=== PATIENT | male | born 1975 | race Two or more races ===

== ENCOUNTER 2018-02-15 09:43 | Day surgery (SDC) | payer BC ==
--- NOTE | 2018-02-14 14:00 | Pre-op HX & Phy Repo 2 SIG ---
DATE OF OUTPATIENT SURGERY: 02/15/2018. HISTORY OF PRESENT ILLNESS: The patient is a 42-year-old male, in overall good health with an umbilical hernia for the past several years, which has been getting slightly larger and is now associated with discomfort. He has no gastrointestinal or genitourinary symptoms. He is scheduled to undergo umbilical hernia repair. PAST MEDICAL HISTORY: none. MEDICATIONS: None. ALLERGIES: None. OPERATIONS: nasal surgery for trauma x4. PHYSICAL EXAMINATION: GENERAL: The patient is 6 foot 3 inches, 230 pounds. HEENT: Within normal limits. LUNGS: Clear. HEART: Regular rhythm. BREASTS: Without masses. ABDOMEN: Slightly obese and soft. There is a mild diastasis rectus, but no epigastric hernia detected with the patient examined supine and standing with various straining maneuvers. There is a small reducible umbilical hernia. There is no evidence of inguinal hernia. RECTAL: Per primary care physician. EXTREMITIES: Without edema. NEUROLOGIC: Physiologic. IMPRESSION: Symptomatic umbilical hernia. PLAN: Full discussion has been had with the patient regarding the nature of his condition, the nature of the surgery, indications, alternatives, options, and risks including bleeding, infection, recurrence with or without mesh, scarring, umbilical deformity, injury to adjacent structures or organs, etc. All questions have been answered. He understands and agrees to proceed under general anesthesia as an outpatient and will likely not require mesh because of the small nature of the defect. Ze Deal M.D. DR: CB/JOAN JOB#: [id number] CC: MARS
[~2018-02-15] VITALS: Ht 190.5 cm; Wt 106.6 kg
[~2018-02-15 09:43] MED LIST: Bacitracin 50000 Units Vial ONE; Bupivacaine 0.5% Inj 30 ml vial INJ ONE; Lidocaine 1% Plain 30 ml INJ ONE
[2018-02-15] MEDS ORDERED: percocet PO (10:14)
[2018-02-15 10:18] VITALS: BP 136/80
[2018-02-15 10:44] LABS: BASOPHILS % (AUTO) 0.7 % (0.0-2.0); EOSINOPHILS % (AUTO) 11.2 % (0.0-3.0); HEMOGLOBIN 14.2 G/DL (14.2-18.0); LYMPHOCYTES % (AUTO) 28.9 % (20.0-45.0); MEAN CORPUSCULAR VOLUME 88 FL (80-99); NEUTROPHILS % (AUTO) 52.2 % (45.0-75.0); PLATELET COUNT 304 K/UL (150-450); RED CELL DISTRIBUTION WIDTH 11.2 % (11.6-14.8); WHITE BLOOD COUNT 7.3 K/UL (4.8-10.8)
[2018-02-15 11:03] LABS: ANION GAP 9 mmol/L (5-15); BLOOD UREA NITROGEN 14 mg/dL (7-18); CALCIUM 9.2 MG/DL (8.5-10.1); CARBON DIOXIDE 28 MMOL/L (21-32); CHLORIDE 104 MMOL/L (98-107); CREATININE 0.9 MG/DL (0.55-1.30); POTASSIUM 3.8 MMOL/L (3.5-5.1); SODIUM 140 MMOL/L (136-145)
--- NOTE | 2018-02-15 11:37 | Anethesia Preoperative Eval ---
Anesthesia Pre-op PMH/ROS General Date of Evaluation: Feb 15, 2018 Anesthesiologist: Ki ASA Score: ASA 2 Mallampati Score Class I : Soft palate, uvula, fauces, pillars visible Class II: Soft palate, uvula, fauces visible Class III: Soft palate, base of uvula visible Class IV: Only hard plate visible Mallampati Classification: Class II Surgeon: Say Diagnosis: Umbilical hernia Surgical Procedure: Umbilical hernia repair Anesthesia History: none Family History: no anesthesia problems Allergies: Coded Allergies: No Known Allergies (Unverified , 02/15/18) Medications: see eMAR Past Medical History Cardiovascular: Denies: HTN, CAD, [place], valve dz, arrhythmia, other Gastrointestinal/Genitourinary: Denies: GERD, CRI, ESRD, other Neurologic/Psychiatric: Denies: dementia, CVA, depression/anxiety, TIA, other Endocrine: Denies: DM, hypothyroidism, steroids, other HEENT: Denies: cataract (L), cataract (R), glaucoma, [place] (L), [place] (R), other Hematology/Immune: Denies: anemia, DVT, bleeding disorder, other Musculoskeletal/Integumentary: Denies: OA, RA, DJD, DDD, edema, other Other: obesity PSxH Narrative: septoplasty Anesthesia Pre-op Phys. Exam Physician Exam Last Vital Signs Date Time Temp Pulse Resp B/P (MAP) Pulse Ox O2 Delivery O2 Flow Rate FiO2 02/15/18 10:18 98.7 70 18 136/80 (98) 97 98.7 02/15/18 10:08 Room Air Constitutional: NAD Cardiovascular: RRR Respiratory: CTA Airway Exam Mallampati Score: Class II MO: full ROM: full Anesthesia Pre-op A/P Labs Hematology Test 02/15/18 10:29 White Blood Count 7.3 K/UL (4.8-10.8) Red Blood Count 4.90 M/UL (4.70-6.10) Hemoglobin 14.2 G/DL (14.2-18.0) Hematocrit 43.0 % (42.0-52.0) Mean Corpuscular Volume 88 FL (80-99) Mean Corpuscular Hemoglobin 29.1 PG (27.0-31.0) Mean Corpuscular Hemoglobin Concent 33.1 G/DL (32.0-36.0) Red Cell Distribution Width 11.2 % (11.6-14.8) L Platelet Count 304 K/UL (150-450) Mean Platelet Volume 6.0 FL (6.5-10.1) L Neutrophils (%) (Auto) 52.2 % (45.0-75.0) Lymphocytes (%) (Auto) 28.9 % (20.0-45.0) Monocytes (%) (Auto) 7.0 % (1.0-10.0) Eosinophils (%) (Auto) 11.2 % (0.0-3.0) H Basophils (%) (Auto) 0.7 % (0.0-2.0) Chemistry Test 02/15/18 10:29 Sodium Level 140 MMOL/L (136-145) Potassium Level 3.8 MMOL/L (3.5-5.1) Chloride Level 104 MMOL/L (98-107) Carbon Dioxide Level 28 MMOL/L (21-32) Anion Gap 9 mmol/L (5-15) Blood Urea Nitrogen 14 mg/dL (7-18) Creatinine 0.9 MG/DL (0.55-1.30) Estimat Glomerular Filtration Rate > 60 mL/min (>60) Glucose Level 106 MG/DL (74-106) Calcium Level 9.2 MG/DL (8.5-10.1) Studies Pre-op Studies: EKG - sr Risk Assessment & Plan Assessment: ASA II Plan: GA Status Change Before Surgery: No Pre-Antibiotics Drug: Ancef 2g Given Within 1 Hr of Incision: Yes Shante Martell MD Feb 15, 2018 11:37
[2018-02-15] MEDS ORDERED: LR 1000ml 1,000 ML IVLG SCH (11:40)
[2018-02-15] MEDS ORDERED: Propofol 200mg/20ml IV ONE (11:42)
[2018-02-15] MEDS ORDERED: Lidocaine 1% MPF 10mg/ml 5ml ONE (11:42)
[2018-02-15] MEDS ORDERED: LORazepam Inj 2mg/ml 1ml IV PRN (11:45)
[2018-02-15] MEDS ORDERED: Midazolam 2mg/2ml Inj IVP PRN (11:45)
[2018-02-15] MEDS ORDERED: fentaNYL 100 mcg/2 mL IV PRN (11:45)
[2018-02-15] MEDS ORDERED: DiphenhydrAMINE 50mg/ml Inj IVP PRN (11:45)
[2018-02-15] MEDS ORDERED: Hydromorphone 0.5mg/0.5ml inj IVP PRN (11:45)
[2018-02-15] MEDS ORDERED: Ketorolac 30mg Inj IV PRN (11:45)
[2018-02-15] MEDS ORDERED: Labetalol 5mg/ml 20ml vial IV PRN (11:45)
[2018-02-15] MEDS ORDERED: Zemuron 50mg/5ml Inj IV ONE (11:47)
--- NOTE | 2018-02-15 11:49 | Pre-Procedure Note/Attestation ---
Pre-Procedure Note/Attestation Complete Prior to Procedure Planned Procedure: not applicable Procedure Narrative: repair of umbilical hernia Indications for Procedure Pre-Operative Diagnosis: umbilical hernia Attestation I attest that I discussed the nature of the procedure; its benefits; risks and complications; and alternatives (and the risks and benefits of such alternatives ), prior to the procedure, with the patient (or the patient's legal field sales representative). I attest that, if there was a reasonable possibility of needing a blood transfusion, the patient (or the patient's legal field sales representative) was given the [facility] standardized written summary, pursuant to the [place] Blood Safety Act ([place] Health and Safety Code # 1645, as amended). I attest that I re-evaluated the patient just prior to the surgery and that there has been no change in the patient's H&P, except as documented below:none Ze Deal MD Feb 15, 2018 11:49
[2018-02-15] MEDS ORDERED: NS Irrig 1000ml ONE (12:00)
[2018-02-15] MEDS ORDERED: LR 1000ml ONE (12:00)
[2018-02-15] MEDS ORDERED: Sterile Water Irrig 1000ml IRRIG ONE (12:00)
[2018-02-15] MEDS ORDERED: Dexamethasone 4mg/ml vial ONE (12:27)
[2018-02-15] MEDS ORDERED: Ketorolac 30mg Inj ONE (12:27)
[2018-02-15] MEDS ORDERED: Midazolam 2mg/2ml Inj ONE (12:55)
[2018-02-15] MEDS ORDERED: Glycopyrrolate 0.2mg/ml 1ml Vial ONE (13:10)
[2018-02-15] MEDS ORDERED: Neostigmine 1mg/ml 10ml Inj ONE (13:10)
--- NOTE | 2018-02-15 13:33 | Brief Operative Note ---
Immediate Post Operative Note Operative Note Pre-op Diagnosis: umbilical hernia Procedure: repair of umbilical hernia Post-op Diagnosis: same Post-op Diagnosis: same as pre-op Findings: consistent w/pre-op dx studies Surgeon: susan Anesthesiologist: skye Anesthesia: general Specimen: none Complications: none Condition: stable Fluids: see anesthesia record Estimated Blood Loss: minimal Drains: none Implant(s) used?: No Ze Deal MD Feb 15, 2018 13:33
[2018-02-15 13:34] VITALS: BP 156/68
--- NOTE | 2018-02-15 13:36 | 48 Hour Post Anesthesia Eval ---
Post Anesthesia Evaluation Procedure: Umbilical hernia repair Date of Evaluation: Feb 15, 2018 Airway: patent Nausea: No Vomiting: No Pain Intensity: 0 Hydration Status: adequate Cardiopulmonary Status: atbaseline Mental Status/LOC: patient returned to baseline Post-Anesthesia Complications: 0 Follow-up care needed: ready to discharge Shante Martell MD Feb 15, 2018 13:36
--- NOTE | 2018-02-15 13:36 | Immediate Post-Op Evaluation ---
Immediate Post-Op Evalulation Immediate Post-Op Evalulation Procedure: Umbilical hernia repair Date of Evaluation: Feb 15, 2018 Time of Evaluation: 13:39 IV Fluids: 1.2L Blood Products: 0 Estimated Blood Loss: min Urinary Output: 0 Blood Pressure Systolic: 156 Blood Pressure Diastolic: 68 Pulse Rate: 93 Respiratory Rate: 17 O2 Sat by Pulse Oximetry: 96 Temperature (Fahrenheit): 98.3 Pain Score (1-10): 0 Nausea: No Vomiting: No Complications 0 Patient Status: awake, reacts, patent, none Hydration Status: adequate Drug: Ancef 2g Given Within 1 Hr of Incision: Yes Time Given: 12:05 Shante Martell MD Feb 15, 2018 13:36
[2018-02-15 13:39] VITALS: BP 121/50
[2018-02-15 13:44] VITALS: BP 117/78
[2018-02-15] MEDS ORDERED: Norco 5mg/325mg tab ORAL PRN (13:45)
[2018-02-15] MEDS ORDERED: HYDROmorphone 1mg/ml Carpuject SUBQ PRN (13:45)
[2018-02-15 13:59] VITALS: BP 126/83
[2018-02-15 14:35] VITALS: BP 129/72
--- NOTE | 2018-02-15 16:30 | Operative Note - Dictated ---
DATE OF OPERATION: 02/15/2018 SURGEON: Ze Deal M.D. SHRIMP CLEANER: None. ANESTHESIOLOGIST: Dr. López TYPE OF ANESTHESIA: General. PREOPERATIVE DIAGNOSIS: Umbilical hernia. POSTOPERATIVE DIAGNOSIS: Umbilical hernia. OPERATION PERFORMED: Repair of umbilical hernia. DESCRIPTION OF PROCEDURE: The patient was taken to the operating room and under general anesthesia with sequential compression device stockings in place, he was prepped and draped in usual fashion. A curvilinear infraumbilical incision was made achieving hemostasis with cautery. The umbilical skin was sharply dissected off of the underlying hernia sac which was circumferentially dissected down to the fascial opening. It was filled with properitoneal fat although the sac was not opened. The hernia defect was incised on the left side slightly and then the hernia could be readily reduced. The field was irrigated and hemostasis was secured. The defect measured approximately 2 5 cm long and 1 cm vertically. There was no tension when the fascial edges were brought together in transverse orientation. The repair was accomplished with interrupted inverted [id number] and simple #1 Prolene sutures covered with some #0 Vicryl suture. The field was irrigated and hemostasis was confirmed to be secure. The undersurface of the umbilical skin was tacked down to the repair with 3-0 Vicryl suture. Incision was closed with interrupted 3-0 Vicryl subcutaneous sutures and 4-0 Monocryl continuous subcuticular suture. Tincture of benzoin and half-inch Steri-Strips were applied followed by placing a cone-shaped piece of Telfa into the umbilical cleft covering that with Telfa and then a 4 x 4, secured with tape. Final sponge and counts were correct. The incision had been infiltrated with a combination of 0.5% Marcaine plain and 1% Xylocaine plan. The patient tolerated the procedure well and left the operating room in good condition. Ze Deal M.D. DR: Armando JOB#: [id number] CC:
== END 2018-02-15 15:00 | disposition home or self-care (01) ==
LOC: SUR 09:43
DX: K42.9 Umbilical hernia without obstruction or gangrene (principal); E66.9 Obesity, unspecified
CPT/HCPCS: 36415; 49585; 80048; 85025; J0690; J1100; J1170; J1885; J2001; J2250; J2405; J2704; J2710; J3010; J3490; J7120; 94003; 94150